=== PATIENT | male | born 1965 | race Caucasian/White ===

== ENCOUNTER 2016-07-15 21:41 | Emergency (ER) | payer OTHER ==
[~2016-07-15] VITALS: Ht 180.3 cm; Wt 80.5 kg
[2016-07-15 21:45] VITALS: Ht 180.3 cm; Wt 80.5 kg
--- NOTE | 2016-07-15 22:17 | ERA ---
ER Documentation Chief Complaint Date/Time DATE: 07/15/16 TIME: 22:16 Chief Complaint had a drink, smoked weed, got weak and fell, - pedro carranza, normal neuro HPI The patient is a 51-year-old male, presenting to the ER because he had a syncopal episode, fell and hit his head on the floor. He had 2 drinks and smoked marijuana. According to the , he then had 3 recurrent episode of fainting and he did not remember that. He denies headache, complaints of mid forehead laceration, denies neck pain, chest pain, dyspnea, abdominal pain, vomiting, dysuria, diarrhea, tongue bite, fecal or urinary incontinence. He does not smoke Past medical history: None Past surgical history: None ROS All systems reviewed and are negative except as per history of present illness. Allergies Allergies: Coded Allergies: No Known Allergy (Unverified , 07/15/16) Physical Exam Vitals Vital Signs Date Time Temp Pulse Resp B/P Pulse Ox O2 Delivery O2 Flow Rate FiO2 07/16/16 00:00 78 18 123/85 100 Room Air 07/15/16 21:45 98.6 84 18 137/78 100 Physical Exam Const: No acute distress. Head: Atraumatic. Eyes: Normal Conjunctiva. ENT: Normal External Ears, Nose and Mouth. Mid forehead superficial 3 cm laceration, no active bleeding Neck: Full range of motion. No meningismus. Resp: Clear to auscultation bilaterally. Cardio: Regular rate and rhythm, no murmurs. Abd: Soft, non distended, normal bowel sounds, non tender. Skin: No petechiae or rashes. Back: No midline or flank tenderness. Ext: No cyanosis, or edema. Neur: Awake and alert. No focal deficit Psych: Normal Mood and Affect. Result Diagram: 07/15/16 2300 07/15/16 2300 Results 24 hrs Laboratory Tests Test 07/15/16 23:00 White Blood Count 8.210^3/ul Red Blood Count 4.3210^6/ul Hemoglobin 14.3g/dl Hematocrit 41.2% Mean Corpuscular Volume 95.4fl Mean Corpuscular Hemoglobin 33.1pg Mean Corpuscular Hemoglobin Concent 34.7g/dl Red Cell Distribution Width 12.1% Platelet Count 56591^3/UL Mean Platelet Volume 11.9fl Neutrophils % 74.7% Lymphocytes % 16.7% Monocytes % 5.5% Eosinophils % 2.1% Basophils % 0.5% Nucleated Red Blood Cells % 0.0/100WBC Neutrophils # 6.210^3/ul Lymphocytes # 1.410^3/ul Monocytes # 0.510^3/ul Eosinophils # 0.210^3/ul Basophils # 0.010^3/ul Nucleated Red Blood Cells # 0.010^3/ul Prothrombin Time 13.2Sec Prothrombin Time Ratio 1.0 INR International Normalized Ratio 1.00 Activated Partial Thromboplast Time 23.6Sec Sodium Level 145mmol/L Potassium Level 3.8mmol/L Chloride Level 106mmol/L Carbon Dioxide Level 27mmol/L Anion Gap 16 Blood Urea Nitrogen 12mg/dl Creatinine 0.87mg/dl Glucose Level 113mg/dl Calcium Level 8.7mg/dl Troponin I < 0.012ng/ml Ethyl Alcohol Level < 10.0mg/dl Current Medications Medications (Trade) Dose Ordered Sig/Julio Route PRN Reason Start Time Stop Time Status Last Admin Dose Admin Diphtheria/ Tetanus/Acell Pertussis 0.5 ml 0.5 ml ONCE ONCE IM* 07/15/16 23:00 07/15/16 23:01 DC 07/15/16 23:09 Sodium Chloride (NS) 1,000 ml @ 1,000 mls/hr Q1H ONCE IV 07/15/16 23:00 07/15/16 23:59 DC Lidocaine/ Epinephrine (Xylocaine 1%/ Epi) 30 ml ONCE STAT INJ 07/16/16 00:27 07/16/16 00:28 DC Procedures/[place] [address] Radiology Main Line: [phone] DIAGNOSTIC IMAGING REPORT Patient: INDIGO HENDRIX : 1965 Age: 51 Sex: M [id number] DOS: 07/15/16 2246 Ordering MD: MUKUND GUTIERRES MD Location: E/R Room/Bed: PROCEDURE: CT cervical spine without contrast. CLINICAL INDICATION: Trauma, neck pain. TECHNIQUE: A CT of the cervical spine was performed without intravenous contrast. Coronal and sagittal reformats were generated. CTDIvol: 22.28 mGy. DLP: 529.04 mGy-cm. One or more of the following dose reduction techniques were used: - Automated exposure control. - Adjustment of the mA and/or kV according to patient size. - Use of iterative reconstruction technique. COMPARISON: None. FINDINGS: There is straightening of the cervical lordosis. No spondylolisthesis is seen. The vertebral body heights are maintained. No fracture or subluxation is seen. The prevertebral soft tissues are normal. No spinal canal stenosis or significant neural foraminal narrowing is identified. The soft tissue structures of the neck are unremarkable. IMPRESSION: 1. No fracture or subluxation of the cervical spine. 2. Straightening of the cervical lordosis. RPTAT: HTAR .Rivas Flores MD, Date Time Electronically viewed and signed by .Rivas Flores MD, MD on 07/16/2016 00:43 .R/ CC: MUKUND GUTIERRES MD [place] [address] Radiology Main Line: [phone] DIAGNOSTIC IMAGING REPORT Patient: INDIGO HENDRIX : 1965 Age: 51 Sex: M MR #: [id number] DOS: 07/15/16 2246 Ordering MD: MUKUND GUTIERRES MD Location: E/R Room/Bed: PROCEDURE: CT head, without contrast. CLINICAL INDICATION: Syncope. TECHNIQUE: Noncontrast CT examination of the head, with axial, sagittal and coronal reformatted images. Automated dose exposure control was employed. CTDI: 45.01 and DLP: 720.23. COMPARISON: None. FINDINGS: No acute hemorrhage. Subarachnoid spaces are substantially preserved and symmetric. Ventricles are unremarkable. No mass effect. [place]-white matter distinction is preserved without evident decreased attenuation to suggest acute or recent infarct. Mucous retention in a few ethmoid air cells and sphenoid sinuses. Sinuses and osseous structures are otherwise unremarkable. IMPRESSION: No acute process in the head. RPTAT: [facility] Physician Tia Date Time Electronically viewed and signed by Pinky Rivas Physician on 07/16/2016 00:37 RS/ CC: MUKUND GUTIERRES MD MEDICAL MAKING DECISION: The patient is a 51-year-old male, presenting with acute syncope. He was treated with Tdap IM, 1 L normal saline for clinical dehydration with good response The differential diagnoses considered include but are not limited to bradyarrhythmia, tachyarrhythmias, aortic outflow obstruction, neurogenic including subarachnoid hemorrhage, orthostatic hypotension and all of its causes , hypoglycemia, dysautonomia, medications. Laceration Repair by me: Anesthesia: 1% lidocaine locally Location: mid forehead Tendon/Joint/Nerves: No injury Foreign body: None detected after copious irrigation and exploration Technique: Simple Interrupted Sutures Complexity: No subcutaneous sutures/mucosal repair/ edge excision Post Closure Length: 3 cm Patient's bleeding was easily controlled in the department and there is no indication of anemia. No evidence of compartment syndrome, neurologic injury, vascular injury, open joint, tendon laceration, or foreign body. Patient is appropriate for outpatient follow up. 48 hour wound check. Scar minimization instructions given. Departure Diagnosis: Primary Impression: Syncope Additional Impression: Facial laceration Comments I recommended him to be admitted for syncope for further evaluation, however he declined. The patient signed out AGAINST MEDICAL ADVICE. Risks, benefits, alternatives were explained to the patient. Risks include but not limited to and permanent disability I advised him to return in 2 days for wound check, 5 days for suture removal, sooner if any concern The patient's blood pressure was elevated (>120/80) but appears stable without evidence of hypertension emergency or urgency. The patient was counseled about the risks of hypertension and urged to pursue outpatient monitoring and therapy within a week with their primary care physician. MUKUND GUTIERRES MD July 15, 2016 22:16
[2016-07-15] MEDS ORDERED: DIPHTH/TET/ACEL PERTUSS (ADULT) 0.5 ML VIAL IM* ONE (23:00)
[2016-07-15] MEDS ORDERED: SOD CHLORIDE 0.9% 1,000 ML IV ONE (23:00)
[2016-07-15 23:50] LABS: ADD SCAN DIFF NO
[2016-07-15 23:52] LABS: BASOPHILS % 0.5 % (0.0-2.0); EOSINOPHILS # 0.2 10^3/ul (0.0-0.5); EOSINOPHILS % 2.1 % (0.0-7.0); HEMATOCRIT 41.2 % (42.0-52.0); HEMOGLOBIN 14.3 g/dl (14.0-18.0); LYMPHOCYTES # 1.4 10^3/ul (0.8-2.9); LYMPHOCYTES % 16.7 % (15.0-51.0); MEAN CORPUSCULAR HEMOGLOBIN 33.1 pg (29.0-33.0); MEAN CORPUSCULAR HGB CONC 34.7 g/dl (32.0-37.0); MEAN CORPUSCULAR VOLUME 95.4 fl (82.0-101.0); MEAN PLATELET VOLUME 11.9 fl (7.4-10.4); MONOCYTE # 0.5 10^3/ul (0.3-0.9); MONOCYTES % 5.5 % (0.0-11.0); NEUTROPHIL # 6.2 10^3/ul (1.6-7.5); NEUTROPHILS % 74.7 % (39.0-77.0); PLATELET COUNT 200 10^3/UL (140-415); RED BLOOD COUNT 4.32 10^6/ul (4.70-6.10); RED CELL DISTRIBUTION WIDTH 12.1 % (11.5-14.5); WHITE BLOOD COUNT 8.2 10^3/ul (4.8-10.8)
[2016-07-16] VITALS: BP 123/85; PULSE 78; RESP 18
[2016-07-16 00:03] LABS: PROTIME 13.2 Sec (12.2-14.2)
[2016-07-16 00:04] LABS: PARTIAL THROMBOPLASTIN TIME 23.6 Sec (25.0-35.0)
[2016-07-16 00:07] LABS: ANION GAP 16 (8-16); BLOOD UREA NITROGEN 12 mg/dl (7-20); CALCIUM 8.7 mg/dl (8.4-10.2); CARBON DIOXIDE 27 mmol/L (21-31); CHLORIDE 106 mmol/L (97-110); CREATININE 0.87 mg/dl (0.61-1.24); GLUCOSE 113 mg/dl (70-220); POTASSIUM 3.8 mmol/L (3.5-5.1); SODIUM 145 mmol/L (135-144)
[2016-07-16 00:18] LABS: TROPONIN-I < 0.012 ng/ml (0.00-0.12)
[2016-07-16] MEDS ORDERED: LIDOCAINE 1%/EPI 30 ML INJ INJ STA (00:27)
--- NOTE | 2016-07-16 00:38 | RADRPT ---
PROCEDURE: CT head, without contrast. CLINICAL INDICATION: Syncope. TECHNIQUE: Noncontrast CT examination of the head, with axial, sagittal and coronal reformatted im ages. Automated dose exposure control was employed. CTDI: 45.01 and DLP: 720.23. COMPARISON: None. FINDINGS: No acute hemorrhage. Subarachnoid spaces are substantially preserved and symmetric. Ventricles ar e unremarkable. No mass effect. [place]-white matter distinction is preserved without evident decreased attenuation t o suggest acute or recent infarct. Mucous retention in a few ethmoid air cells and sphenoid sinuses. Sinuses and osseous structures are otherwise unremarkable. IMPRESSION: No acute process in the head. RPTAT: [facility] Physician Tia Date Time Electronically viewed and signed by Physician Tia on 07/16/2016 00:37 RS/
[2016-07-16 00:40] LABS: ETHANOL < 10.0 mg/dl
--- NOTE | 2016-07-16 00:43 | RADRPT ---
PROCEDURE: CT cervical spine without contrast. CLINICAL INDICATION: Trauma, neck pain. TECHNIQUE: A CT of the cervical spine was performed without intravenous contrast. Coronal and sag ittal reformats were generated. CTDIvol: 22.28 mGy. DLP: 529.04 mGy-cm. One or more of the following dose reduction techniques were used: - Automated exposure control. - Adjustment of the mA and/or kV according to patient size. - Use of iterative reconstruction technique. COMPARISON: None. FINDINGS: There is straightening of the cervical lordosis. No spondylolisthesis is seen. The vertebral body h eights are maintained. No fracture or subluxation is seen. The prevertebral soft tissues are latrice l. No spinal canal stenosis or significant neural foraminal narrowing is identified. The soft tissue structures of the neck are unremarkable. IMPRESSION: 1. No fracture or subluxation of the cervical spine. 2. Straightening of the cervical lordosis. RPTAT: HTAR .Rivas Flores MD, MD Date Time Electronically viewed and signed by .Rivas Flores MD, MD on 07/16/2016 00:43 .R/
== END 2016-07-16 01:35 | disposition left against medical advice (07) ==
LOC: E/R 21:41
DX: R55 Syncope and collapse (principal); S01.81XA Laceration without foreign body of other part of head, initial encounter; W18.09XA Striking against other object with subsequent fall, initial encounter; Y92.9 Unspecified place or not applicable; Z23 Encounter for immunization
CPT/HCPCS: 12013; 36415; 70450; 72125; 80048; 80306; 84484; 85025; 85610; 85730; 90472; 90715; 99285; J7030